=== PATIENT | male | born 1955 | race Caucasian/White ===

== ENCOUNTER 2021-01-17 10:42 | Inpatient (IN) ==
[2021-01-17] MEDS ORDERED: 0.9 % Sodium Chloride 1,000 ML IVC ONE (11:03)
[2021-01-17] MEDS ORDERED: Ondansetron 4 MG/2 ML VIAL IVP ONE (11:03)
[2021-01-17] MEDS ORDERED: *HR* FentaNYL (PF) 100 MCG/2 ML VIAL IVP ONE ×4 (11:04→17:48)
[2021-01-17 11:26] LABS: Basophils % 0.3 %; Eosinophils # 0.1 K/mcL (0.0-0.6); Eosinophils % 0.6 %; Hematocrit 48.3 % (37.5-50.1); Hemoglobin 16.5 g/dL (12.9-16.9); Immature Granulocytes % 0.6 % (0-4); Lymphocytes # 1.3 K/mcL (0.6-4.6); Lymphocytes % 10.2 %; Mean Corpuscular HGB Conc 34.2 g/dL (31.6-35.5); Mean Corpuscular Hemoglobin 30.7 pg (28.0-33.3); Mean Corpuscular Volume 89.8 fL (83.0-100.0); Mean Platelet Volume 10.5 fL (9.4-12.4); Monocytes # 0.6 K/mcL (0.0-1.3); Neutrophils # 10.5 K/mcL (1.6-8.9); Platelet Count 224 K/mcL (140-400); Red Blood Count 5.38 M/mcL (4.19-5.50); Red Cell Distribution Width 12.7 % (11.5-14.5); Segmented Neutrophils % 83.3 %; White Blood Count 12.6 K/mcL (4.3-11.1)
[2021-01-17 11:27] LABS: INR 1.1; Prothrombin Time 12.5 Seconds (9.4-12.1)
[2021-01-17 11:30] LABS: Activated Partial Thrombo Time 29.3 Seconds (26.0-36.0)
[2021-01-17 11:55] LABS: Alanine Aminotransferase 53 Units/L (7-52); Albumin 4.3 g/dL (3.5-5.7); Albumin/Globulin Ratio 1.5 (1.1-2.2); Alkaline Phosphatase 92 Units/L (34-104); Aspartate Amino Transferase 56 Units/L (13-39); BUN/Creatinine Ratio 23 (6-26); Bilirubin,Direct 0.8 mg/dL (0.0-0.2); Bilirubin,Indirect 0.7 mg/dL (0.0-1.0); Bilirubin,Total 1.5 mg/dL (0.3-1.0); Blood Urea Nitrogen 23 mg/dL (8-23); Calcium 9.6 mg/dL (8.6-10.3); Carbon Dioxide 22 mEq/L (23-29); Chloride 103 mEq/L (98-107); Globulin 2.9 g/dL (2.4-3.5); Glucose 134 mg/dL (70-105); Lipase > 1800 Units/L (11-82); Osmolality,Calculated 290 (280-300); Potassium 3.6 mEq/L (3.5-5.1); Sodium 137 mEq/L (136-145); Total Protein 7.2 g/dL (6.4-8.9); Troponin I < 0.03 ng/mL (< 0.04); eGFR For African Americans > 60 (> 60); eGFR For Non-African Americans > 60 (> 60)
[2021-01-17] MEDS ORDERED: Piperacillin/Tazobactam 3.375 GM in 0.9 % Sodium Chloride Mini Bag 100 ML IVPB ONE (12:23)
[2021-01-17 12:53] LABS: Bilirubin,Urine Negative (Negative); Blood,Urine Negative (Negative); Clarity,Urine Clear (Clear); Color,Urine Yellow (Yellow); Glucose,Urine (UA) Normal (Normal); Ketones,Urine Negative (Negative); Leukocyte Esterase,Urine Negative (Negative); Nitrite,Urine Negative (Negative); PH,Urine 5.5 pH Units (5.0-8.0); Protein,Urine Negative (Neg-Trace); Specific Gravity,Urine 1.018 (1.010-1.025); Urobilinogen,Urine Normal (Normal)
[2021-01-17] MEDS ORDERED: Naloxone 0.4 MG/ML INJ IVP PRN (13:05)
[2021-01-17] MEDS ORDERED: Ondansetron 4 MG/2 ML VIAL IVP PRN (13:05)
[2021-01-17 13:48] LABS: Adenovirus Not Detected (Not Detect); Bordetella Pertussis Not Detected (Not Detect); Chlamydophila pneumoniae Not Detected (Not Detect); Coronavirus 229E Not Detected (Not Detect); Coronavirus HKU1 Not Detected (Not Detect); Coronavirus NL63 Not Detected (Not Detect); Coronavirus OC43 Not Detected (Not Detect); Human Metapneumovirus Not Detected (Not Detect); Human Rhinovirus/Enterovirus Not Detected (Not Detect); Influenza A Subtype 2009 H1 Not Detected (Not Detect); Influenza B Not Detected (Not Detect); Mycoplasma pneumoniae Not Detected (Not Detect); Parainfluenza Virus 1 Not Detected (Not Detect); Parainfluenza Virus 2 Not Detected (Not Detect); Parainfluenza Virus 3 Not Detected (Not Detect); Parainfluenza Virus 4 Not Detected (Not Detect); Respiratory Syncytial Virus Not Detected (Not Detect); SARS-CoV-2 Not Detected (Not Detect)
[2021-01-17] MEDS ORDERED: Acetaminophen 325 MG TABLET PO PRN ×2 (15:30→15:31)
[2021-01-17] MEDS ORDERED: Morphine Sulfate 2 MG/ML SYRINGE IVP PRN (15:30)
[2021-01-17 15:45] LABS: INR 1.1; Prothrombin Time 12.6 Seconds (9.4-12.1)
[2021-01-17 16:00] LABS: Chol/HDL Ratio 3.2 (0-4.9); Magnesium 1.8 mg/dL (1.6-2.6); Phosphorous 3.7 mg/dL (2.7-4.5)
[2021-01-17] MEDS ORDERED: Melatonin 3 MG TABLET PO PRN (16:08)
[2021-01-17] MEDS: Ringers Solution, Lactated 500 ML IVC SCH ×2 (17:32→18:05)
[2021-01-17] MEDS ORDERED: *HR* Heparin 5,000 UNIT/ML VIAL SQ SCH (18:00)
[2021-01-17] MEDS: Piperacillin/Tazobactam 3.375 GM in 0.9 % Sodium Chloride Mini Bag 100 ML IVPB SCH (20:36)
[2021-01-18] MEDS: Piperacillin/Tazobactam 3.375 GM in 0.9 % Sodium Chloride Mini Bag 100 ML IVPB SCH ×3 (04:55→21:37)
[2021-01-18] MEDS: *HR* Enoxaparin 40 MG/0.4 ML SYRINGE SQ SCH (04:56)
[2021-01-18 06:19] LABS: Basophils % 0.2 %; Eosinophils # 0.1 K/mcL (0.0-0.6); Eosinophils % 0.5 %; Hematocrit 44.7 % (37.5-50.1); Immature Granulocytes % 0.4 % (0-4); Lymphocytes # 1.5 K/mcL (0.6-4.6); Lymphocytes % 12.1 %; Mean Corpuscular HGB Conc 33.6 g/dL (31.6-35.5); Mean Corpuscular Hemoglobin 30.7 pg (28.0-33.3); Mean Corpuscular Volume 91.4 fL (83.0-100.0); Mean Platelet Volume 10.6 fL (9.4-12.4); Monocytes # 0.8 K/mcL (0.0-1.3); Monocytes % 6.3 %; Neutrophils # 9.8 K/mcL (1.6-8.9); Platelet Count 192 K/mcL (140-400); Red Blood Count 4.89 M/mcL (4.19-5.50); Red Cell Distribution Width 12.9 % (11.5-14.5); Segmented Neutrophils % 80.5 %; White Blood Count 12.1 K/mcL (4.3-11.1)
[2021-01-18 06:44] LABS: Alanine Aminotransferase 47 Units/L (7-52); Albumin 3.8 g/dL (3.5-5.7); Albumin/Globulin Ratio 1.5 (1.1-2.2); Alkaline Phosphatase 77 Units/L (34-104); Aspartate Amino Transferase 31 Units/L (13-39); BUN/Creatinine Ratio 19 (6-26); Bilirubin,Total 1.1 mg/dL (0.3-1.0); Blood Urea Nitrogen 18 mg/dL (8-23); Calcium 8.9 mg/dL (8.6-10.3); Carbon Dioxide 21 mEq/L (23-29); Chloride 103 mEq/L (98-107); Globulin 2.6 g/dL (2.4-3.5); Glucose 103 mg/dL (70-105); Magnesium 1.6 mg/dL (1.6-2.6); Osmolality,Calculated 282 (280-300); Phosphorous 2.7 mg/dL (2.7-4.5); Potassium 3.3 mEq/L (3.5-5.1); Sodium 135 mEq/L (136-145); Total Protein 6.4 g/dL (6.4-8.9); eGFR For African Americans > 60 (> 60); eGFR For Non-African Americans > 60 (> 60)
[2021-01-18] MEDS ORDERED: Ringers Solution, Lactated 1,000 ML IVC SCH ×2 (08:00→10:15)
[2021-01-18] MEDS: Aspirin Enteric Coated 81 MG Tablet PO SCH (08:24)
[2021-01-18] MEDS: hydroCHLOROthiazide 25 MG TABLET PO SCH ×2 (08:24→15:46)
[2021-01-18] MEDS: lisinopriL 20 MG TABLET PO SCH (08:24)
[2021-01-18] MEDS ORDERED: *HR* HYDROcodone/Acet 5/325 mg TABLET PO PRN (10:11)
[2021-01-18] MEDS ORDERED: Ondansetron 4 MG/2 ML VIAL IVP PRN (10:11)
[2021-01-18] MEDS ORDERED: *HR* HYDROmorphone PF 0.5 MG/0.5 ML SYRINGE IVP PRN (10:11)
[2021-01-18] MEDS ORDERED: *HR* Propofol 200 MG/20 ML VIAL IVP ONE ×2 (10:13→10:14)
[2021-01-18] MEDS ORDERED: *HR* Succinylcholine 200 MG/10 ML VIAL IVP ONE (10:15)
[2021-01-18] MEDS ORDERED: Lidocaine -MPF 2% 2 ML VIAL ONE (10:15)
[2021-01-18] MEDS ORDERED: Lidocaine -MPF 4% 5 ML AMPUL ONE (10:15)
[2021-01-18] MEDS ORDERED: *HR* Rocuronium Bromide 50 MG/5 ML VIAL ONE (10:38)
[2021-01-18] MEDS ORDERED: Ondansetron 4 MG/2 ML VIAL ONE (10:38)
[2021-01-18] MEDS ORDERED: Indomethacin 50 MG SUPP.RECT RC ONE (11:15)
[2021-01-18] MEDS ORDERED: EPHEDrine 50 MG/ML VIAL ONE (11:20)
[2021-01-19 04:29] LABS: Basophils % 0.2 %; Eosinophils # 0.1 K/mcL (0.0-0.6); Eosinophils % 0.5 %; Hematocrit 39.5 % (37.5-50.1); Immature Granulocytes % 0.4 % (0-4); Lymphocytes # 1.8 K/mcL (0.6-4.6); Lymphocytes % 14.7 %; Mean Corpuscular HGB Conc 33.4 g/dL (31.6-35.5); Mean Corpuscular Hemoglobin 30.1 pg (28.0-33.3); Mean Platelet Volume 10.7 fL (9.4-12.4); Monocytes # 1.1 K/mcL (0.0-1.3); Monocytes % 8.5 %; Neutrophils # 9.4 K/mcL (1.6-8.9); Platelet Count 159 K/mcL (140-400); Red Blood Count 4.39 M/mcL (4.19-5.50); Segmented Neutrophils % 75.7 %; White Blood Count 12.4 K/mcL (4.3-11.1)
[2021-01-19 04:30] LABS: Hemoglobin 13.2 g/dL (12.9-16.9)
[2021-01-19 04:46] LABS: Magnesium 1.7 mg/dL (1.6-2.6); Phosphorous 2.2 mg/dL (2.7-4.5)
[2021-01-19 04:47] LABS: BUN/Creatinine Ratio 18 (6-26); Blood Urea Nitrogen 18 mg/dL (8-23); Calcium 8.5 mg/dL (8.6-10.3); Carbon Dioxide 25 mEq/L (23-29); Chloride 102 mEq/L (98-107); Glucose 103 mg/dL (70-105); Osmolality,Calculated 280 (280-300); Potassium 3.3 mEq/L (3.5-5.1); Sodium 134 mEq/L (136-145); eGFR For African Americans > 60 (> 60); eGFR For Non-African Americans > 60 (> 60)
[2021-01-19] MEDS: *HR* Enoxaparin 40 MG/0.4 ML SYRINGE SQ SCH (05:29)
[2021-01-19] MEDS: Piperacillin/Tazobactam 3.375 GM in 0.9 % Sodium Chloride Mini Bag 100 ML IVPB SCH ×3 (05:30→20:35)
[2021-01-19] MEDS ORDERED: *HR* FentaNYL (PF) 100 MCG/2 ML VIAL ONE (07:26)
[2021-01-19] MEDS ORDERED: Ondansetron 4 MG/2 ML VIAL ONE (07:26)
[2021-01-19] MEDS ORDERED: *HR* Propofol 200 MG/20 ML VIAL IVP ONE (07:26)
[2021-01-19] MEDS ORDERED: *HR* Succinylcholine 200 MG/10 ML VIAL IVP ONE (07:26)
[2021-01-19] MEDS ORDERED: Lidocaine -MPF 4% 5 ML AMPUL ONE (07:26)
[2021-01-19] MEDS ORDERED: Lidocaine -MPF 2% 2 ML VIAL ONE (07:26)
[2021-01-19] MEDS ORDERED: *HR* Rocuronium Bromide 50 MG/5 ML VIAL ONE (07:26)
[2021-01-19] MEDS ORDERED: Potassium Phosphate 44 MEQ in 0.9 % Sodium Chloride 250 ML IVPB ONE ×2 (07:27→10:39)
[2021-01-19] MEDS: hydroCHLOROthiazide 25 MG TABLET PO SCH ×2 (07:28→17:34)
[2021-01-19] MEDS: Aspirin Enteric Coated 81 MG Tablet PO SCH (07:28)
[2021-01-19] MEDS: lisinopriL 20 MG TABLET PO SCH (07:28)
[2021-01-19] MEDS ORDERED: EPHEDrine 50 MG/ML VIAL ONE (08:22)
[2021-01-19] MEDS ORDERED: Sugammadex Sodium 200 MG/2 ML VIAL IV ONE (08:45)
[2021-01-19] MEDS ORDERED: Ketorolac 30 MG/ML VIAL ONE (09:20)
[2021-01-19] MEDS ORDERED: Acetaminophen 325 MG TABLET PO PRN (10:39)
[2021-01-19] MEDS ORDERED: Melatonin 3 MG TABLET PO PRN (10:39)
[2021-01-19] MEDS ORDERED: Ondansetron 4 MG/2 ML VIAL IVP PRN (10:39)
[2021-01-19] MEDS ORDERED: Morphine Sulfate 2 MG/ML SYRINGE IVP PRN (10:39)
[2021-01-19] MEDS ORDERED: Naloxone 0.4 MG/ML INJ IVP PRN (10:39)
[2021-01-20 02:20] LABS: Basophils % 0.2 %; Eosinophils # 0.1 K/mcL (0.0-0.6); Eosinophils % 0.9 %; Hematocrit 37.4 % (37.5-50.1); Hemoglobin 12.4 g/dL (12.9-16.9); Immature Granulocytes % 0.4 % (0-4); Lymphocytes # 1.8 K/mcL (0.6-4.6); Lymphocytes % 15.7 %; Mean Corpuscular HGB Conc 33.2 g/dL (31.6-35.5); Mean Corpuscular Hemoglobin 30.4 pg (28.0-33.3); Mean Corpuscular Volume 91.7 fL (83.0-100.0); Mean Platelet Volume 10.8 fL (9.4-12.4); Monocytes % 8.8 %; Neutrophils # 8.7 K/mcL (1.6-8.9); Platelet Count 150 K/mcL (140-400); Red Blood Count 4.08 M/mcL (4.19-5.50); Red Cell Distribution Width 13.3 % (11.5-14.5); White Blood Count 11.7 K/mcL (4.3-11.1)
[2021-01-20 02:36] LABS: BUN/Creatinine Ratio 19 (6-26); Blood Urea Nitrogen 19 mg/dL (8-23); Calcium 8.1 mg/dL (8.6-10.3); Carbon Dioxide 23 mEq/L (23-29); Chloride 104 mEq/L (98-107); Glucose 128 mg/dL (70-105); Magnesium 1.9 mg/dL (1.6-2.6); Osmolality,Calculated 286 (280-300); Sodium 136 mEq/L (136-145); eGFR For African Americans > 60 (> 60); eGFR For Non-African Americans > 60 (> 60)
[2021-01-20] MEDS: Piperacillin/Tazobactam 3.375 GM in 0.9 % Sodium Chloride Mini Bag 100 ML IVPB SCH (04:15)
[2021-01-20] MEDS ORDERED: *HR* Enoxaparin 40 MG/0.4 ML SYRINGE SQ SCH (06:00)
[2021-01-20 06:36] VITALS: BP 143/75
[2021-01-20] MEDS: hydroCHLOROthiazide 25 MG TABLET PO SCH (08:09)
[2021-01-20] MEDS ORDERED: lisinopriL 20 MG TABLET PO SCH (09:00)
[2021-01-20] MEDS ORDERED: Aspirin Enteric Coated 81 MG Tablet PO SCH (09:00)
== END 2021-01-20 11:04 | disposition home or self-care (01) | DRG 418 ==
LOC: EMEROOARM 10:42 → 3BNU 10:42 → SUATTDRO 14:44 → 3BNU 15:30
PROVIDERS: ADMIT Internal Medicine; ATTEND Internal Medicine